=== PATIENT | female | born 1935 | race Caucasian/White ===

== ENCOUNTER → 2016-11-17 | Outpatient (CLI) | payer MEDICARE, BC ==
[~2016-11-17] MED LIST: CARTIA XT120 MG PO; CLARITIN10 MG PO; CRESTOR10 MG PO; DONEPEZIL HCL10 MG PO; ELIQUIS5 MG PO; IMODIUM2 MG PO; LANOXIN (DIGI125 MCG PO; LEVOTHROID (SY50 MCG PO; LOPRESSOR50 MG PO; MAALOX LIQ UNIT30 ML PO; MILK OF MA400 MG/5 M PO; NORVASC2.5 MG PO; PEPCID20 MG PO; ROBITUSSIN DM120 ML PO; TYLENOL325 MG PO; XALATAN2.5 ML OPHTH; XANAX0.25 MG PO
--- NOTE | ~2016-11-17 | ESTC ---
Cardiac Perfusion Imaging Demographics Patient Name ABRAHAM Rogers Gender Female Patient Number [id number] Race Visit Number [id number] Ethnicity Corporate ID Room Number Accession Number [id number] Height Date of 1935 Weight Age 81 year(s) BSA Referring Physician Lissett Mclean BMI A Interpreting Adam Hernandez Date of study 11/17/2016 Physician Supervising MD/MLP Magi JANSEN Technologist Sarai Gamez Ordering Physician Lissett Jiménez MD manufacturing test technician Stress ECG Reading Magi Corbett APRN Nurse Kailyn Crawley Physician aerial photogrammetrist Procedure Type: Nuclear Stress Test:Pharmacological, Lexiscan, Cardiolite Stress Test Procedure Start time: 11/17/2016 08:08 Indications: Pulmonary Hypertension: Moderate and Atrial fibrillation. Risk Factors The patient risk factors include:cerebrovascular disease. Conclusions Summary 1. Perfusion Images: The overall quality of the study is fair, due to gastrointestinal tracer uptake. Left ventricular cavity size is small on stress and rest images. There is no evidence of abnormal lung activity. The right ventricle is not visualized well and cannot be assessed. Stress imaging reveals a small sized area of mild decreased isotope uptake in the basal inferoseptal wall of the left ventricle. Rest imaging reveals a medium sized area of moderate decreased isotope uptake in the inferoseptal wall and inferior wall of the left ventricle. Calculated TID ratio is 1.27. Gated imaging reveals hyperdynamic left ventricle with calculated LV ejection fraction of 73%. Impression ECG portion of stress test is clinically nondiagnostic for ischemia by diagnostic criteria due to baseline abnormalities. Myocardial perfusion imaging is mildly abnormal The basal inferoseptal wall defect and inferior wall defects worse on rest images with preserved wall motion is consistent with artifact. Calculated TID ratio is 1.27. Gated imaging reveals hyperdynamic left ventricle with calculated LV ejection fraction of 73%. Stress Protocols Resting ECG Afib with Twave inversion in II, III, aVF, V5, V6. Pre-stress physical exam: Patient assessed by Carly LION prior to testing. Chest - CTA Cardio - IRR, S1, S2. Peak HR:88 bpm HR response: Appropriate Peak BP:154/67 mmHg BP response: Appropriate Predicted HR: 141 bpm HR/BP product:07825 % of predicted HR: 62 Reason for termination:Infusion complete ECG Findings Arrhythmias Occasional PVC's with lexiscan infusion. Symptoms No symptoms with Lexiscan infusion. Complications Procedure complication: None. Stress Interpretation Appropriate hemodynamic response to Lexiscan. Significant ST-T wave changes with Lexiscan. ECG portion is Positive for ischemia by diagnostic criteria. Will correlate with nuclear images. Imaging Results Summed scores - Summed stress score: 9 - Summed rest score: 14 - Summed difference score: -5 Stress ejection Ejection fraction:73 % EDV :62 ml ESV :17 ml Stroke volume :45 ml LV mass :92 gr Imaging Protocols Rest Stress Isotope:Tc99m Sestamibi IV Isotope: Tc99m Sestamibi IV Isotope dose:10 mCi Isotope dose:30.7 mCi Date:11/17/2016 07:26 Date:11/17/2016 09:00 Technique: SPECT Technique: Gated Supine SPECT Supine Scan Time:45-60 minutes post Scan Time:45-60 minutes post injection injection Procedure Medications - Regadenoson (Lexiscan) 0.4 mg IV over 10-15 sec. I.V. 0.4 mg. Medical History Admission Data Admission date: 11/17/2016 Admission Time: 07:05 Hospital Status: Outpatient. Signatures dtt: dtshilo: 11/17/16 0808 Physician Self Edit
== END | disposition disaster alternative care site (69) ==
LOC: GRAD 07:00
DX: I48.91 Unspecified atrial fibrillation (principal); I27.2 Other secondary pulmonary hypertension; I67.9 Cerebrovascular disease, unspecified; R94.39 Abnormal result of other cardiovascular function study
CPT/HCPCS: A9500; J2785

== ENCOUNTER → 2017-01-03 | Outpatient (CLI) | payer MEDICARE, BC ==
[2017-01-03 15:58] LABS: HEMOGLOBIN 11.5 g/dL (10.0-15.0); MCH 27.9 pg (27.0-34.0); MCHC 30.3 gm/dL (32.0-36.5); MCV 92.2 fl (83.0-98.0); MPV 10.3 fl (9.4-12.4); RBC 4.12 M/uL (3.50-5.50); RDW-CV 14.8 % (11.9-14.6); WBC 3.7 K/uL (4.0-11.0)
== END ==
LOC: LGSMG 15:51
PROVIDERS: Internal Medicine
DX: I48.91 Unspecified atrial fibrillation (principal)

== ENCOUNTER 2017-03-28 17:55 | Inpatient (IN) | payer MEDICARE, BC, MEDICAID ==
[~2017-03-28] VITALS: Ht 171.4 cm; Wt 60.6 kg
--- NOTE | ~2017-03-28 | OR ---
PATIENT'S NAME: RIGOBERTO ROSARIO [facility] AGE: 81 Y [address] ROOM: [address] [address] [facility] ADMIT DATE: 03/28/2017 OR/Procedure Report DISCHARGE DATE: FAMILY PHYSICIAN: PHYSICIAN, UNKNOWN ATTENDING PHYSICIAN: ELVIN ALMANZA SURGEON: Daniel De Leon MD SPIN INSTRUCTOR: Quique Delgado PA-C. DATE OF PROCEDURE: 03/31/2017 PREOPERATIVE DIAGNOSES: 1. Gallstone pancreatitis. 2. Chronic cholecystitis/cholelithiasis. POSTOPERATIVE DIAGNOSES: 1. Gallstone pancreatitis. 2. Chronic cholecystitis/cholelithiasis. 3. Normal common bile duct on cholangiogram with no residual filling defects. PROCEDURE: Laparoscopic cholecystectomy with intraoperative cholangiogram. SURGEON: Daniel De Leon MD. ANESTHESIA: General with 30 mL of 0.5% Marcaine local. SPECIMEN: Gallbladder with multiple 1 cm stones. INDICATION: The patient is a pleasant 81-year-old young lady, admitted on 03/28/2017 with gallstone pancreatitis pretty severe with a lot of peripancreatic and gallbladder edema. She had large stones. Her liver function tests remained normal. Her common bile duct was 5 mm and her liver function tests and her amylase and lipase trended toward normal. Today, we elected to perform gallbladder removal and assessment of the common bile duct. DESCRIPTION OF PROCEDURE: After informed consent, the patient was taken to the operating room and after general endotracheal anesthesia, the patient's abdomen was prepped and draped into a sterile field. Local anesthetic infiltrated prior to each incision. The first one made below the umbilicus and carried down to identify the anterior fascia, through which a Veress needle was inserted and pneumoperitoneum created. Trocar and laparoscope were inserted under direct vision. The remaining trocars were placed. The gallbladder was edematous, was pale, was retracted cephalad and laterally. We stripped down the adhesions of the hepatoduodenal ligament and isolated a slightly dilated cystic duct. We placed a clip on the gallbladder side. Did a cystotomy, opened it up. We had to milk out some stone debris and then we [facility] AGE: 81 Y [address] ROOM: [address] [address] [facility] ADMIT DATE: 03/28/2017 OR/Procedure Report DISCHARGE DATE: FAMILY PHYSICIAN: PHYSICIAN, UNKNOWN ATTENDING PHYSICIAN: ELVIN ALMANZA got free flow of bile out of the cystic duct. We placed our cholangiogram catheter used Isovue 30 contrast and obtained a cholangiogram with the above- mentioned normal results. We removed the cholangiogram catheter, clipped the cystic duct times 3 distally and divided. The cystic artery was clipped and divided. The gallbladder was removed from the liver bed with electrocautery. The gallbladder put into an EndoCatch bag and brought out through the subxiphoid and the umbilical incision. We irrigated the right upper quadrant. It was found to be hemostatic. No evidence of bile leak and the clips were in place. The trocars were removed and pneumoperitoneum released. Midline fascia defects were closed with 0 Vicryl. Skin closed with subcuticular 4-0 Vicryl. Steri-Strips and sterile dressings applied. The patient tolerated the procedure well, transferred to recovery in stable condition. DANIEL DE LEON MD WTAma/modl /[id number] d: 04/01/17 0018 t: 04/12/17 0950, OPERATIVE SUMMARY
--- NOTE | ~2017-03-28 | CON ---
PATIENT'S NAME: RIGOBERTO ROSARIO [facility] AGE: 81 Y [address] ROOM: [address] [place], [place] [address] LOCATION: [facility] ADMIT DATE: 03/28/2017 Consultation DISCHARGE DATE: FAMILY PHYSICIAN: PHYSICIAN, UNKNOWN ATTENDING PHYSICIAN: ELVIN ALMANZA DATE OF CONSULTATION: 03/29/2017 REFERRING PHYSICIAN: HANNAH JAIME MD CONSULTATION NOTE REASON FOR CONSULTATION: Gallstone pancreatitis. HISTORY OF PRESENT ILLNESS: Rigoberto Rosario is a 81-year-old female, who resides at [facility] in [place]. She states that for years she has known that she had a large gallstone. She would have symptoms off and on. She saw a surgeon in the past in [place] who discussed pros and cons of a cholecystectomy. The patient opted not to have an operation at that time. She states that she had been getting along very well and felt good yesterday, when she went to lunch at [facility]. Shortly after eating, she did not feel good and within an hour, she was clearly worse with increased abdominal pain. She states that the worst pain was actually located in the right lower quadrant. She did have nausea. Eventually, she called the nurse who then called the ambulance to take her to the emergency room. Today, she states that she is feeling better after receiving some Dilaudid last night. The patient's initial evaluation showed a white blood cell count of 7.9. CMP showed a total bilirubin of 0.9, alkaline phosphatase 91, AST 257, ALT 145, amylase 1911, and lipase greater than 30,000. A CT scan of the abdomen and pelvis was done, that showed a single 12 mm rim calcified stone in the gallbladder. The gallbladder wall was edematous. There was small perihepatic fluid. The bile ducts were dilated with common bile duct measuring 8 mm and a subtle 5-mm density in the lower duct adjacent to the ampulla that was suspicious for choledocholithiasis. There was moderate peripancreatic inflammatory changes with edema, but no loculated fluid collections. The patient was admitted under the care of the hospitalist, and Dr. Butt consulted Surgery today for evaluation. Gastroenterology has also been consulted. PAST MEDICAL HISTORY: ALLERGIES: GLUTEN, ASPIRIN. ADVERSE REACTION TO COUMADIN. PATIENT'S NAME: ABRAHAM, RIGOBERTO L [facility] AGE: 81 Y [address] ROOM: [place] [address] LOCATION: [facility] ADMIT DATE: 03/28/2017 Consultation DISCHARGE DATE: FAMILY PHYSICIAN: PHYSICIAN, UNKNOWN ATTENDING PHYSICIAN: ELVIN ALMANZA HOME MEDICATIONS: Include: 1. Tylenol 325 mg p.o. q.4 hours. 2. Diltiazem HCl 120 mg p.o. at bedtime. 3. Claritin 10 mg p.o. q. day p.r.n. allergies. 4. Lanoxin 125 mcg p.o. q. day. 5. Donepezil 10 mg p.o. at bedtime. 6. Eliquis 5 mg p.o. b.i.d. 7. Imodium 2 mg p.o. q.4 hours p.r.n. diarrhea. 8. Xalatan 1 drop ophthalmic at bedtime. 9. Maalox 15 mL p.o. q.4 hours p.r.n. indigestion. 10. Milk of magnesia 10 mL p.o. q. day p.r.n. constipation. 11. Robitussin 10 mL p.o. q.4 hours p.r.n. cough. 12. Levothroid 50 mcg p.o. q. day. 13. Xanax 0.25 mg p.o. b.i.d. p.r.n. anxiety. MEDICAL PROBLEMS: Illnesses include: 1. Atrial fibrillation, on Eliquis. 2. Recent CVA while off blood thinners. 3. Systemic lupus erythematosus. 4. Hypothyroidism. 5. Glaucoma. 6. Dementia. 7. Mild congestive heart failure. 8. History of left breast cancer that did not require chemotherapy or radiation. 9. Chronic hematuria with cause unknown. PAST SURGICAL HISTORY: Operations: 1. Left mastectomy. 2. Colonoscopy. SOCIAL HISTORY: The patient lives in [facility] since having her stroke. 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 Her was a pie filler. They moved throughout the country due to his job. She has three children. She has never smoked. She does not consume alcohol. FAMILY HISTORY: A sister had multiple myeloma, and brother had metastatic colon cancer. REVIEW OF SYSTEMS: PATIENT'S NAME: RIGOBERTO ROSARIO [facility] AGE: 81 Y [address] ROOM: [address] [place], [place] [address] LOCATION: [facility] ADMIT DATE: 03/28/2017 Consultation DISCHARGE DATE: FAMILY PHYSICIAN: PHYSICIAN, UNKNOWN ATTENDING PHYSICIAN: ELVIN ALMANZA See HPI. PHYSICAL EXAMINATION: VITAL SIGNS: Temperature is 98.0, blood pressure 169/76, pulse 77, and respirations 20. GENERAL: A 81-year-old female, who is alert, oriented, pleasant and cooperative, in no acute distress. Very talkative. A good historian. LUNGS: Clear. HEART: Regular. ABDOMEN: Positive bowel sounds. Abdomen is soft with diffuse tenderness. She was tender in the right lower quadrant, but then also tender in the right upper and epigastric region. No peritoneal signs. LABORATORY DATA AND IMAGING STUDIES: Laboratory work today; white blood cell count 6.8, hemoglobin 13.7, hematocrit 43.4, and platelets 243,000. Sodium 139, potassium 3.6, chloride 104, CO2 of 28, BUN 12, creatinine 0.6, glucose 99, total bilirubin 0.8, alkaline phosphatase 87, AST 179, and ALT 158. CT per HPI. Ultrasound is being performed at this time. ASSESSMENT: 1. A 81-year-old female with gallstone pancreatitis with dilated ducts and possible choledocholithiasis. 2. Atrial fibrillation, on Eliquis with the last dose being yesterday morning. 3. History of left breast cancer. 4. Systemic lupus erythematosus. PLAN: I discussed the findings on CT scan with the patient. I discussed that Gastroenterology will need to evaluate for possible ERCP. Once the decision is made in regard to the ERCP, then we will decide on the timing of the gallbladder removal. Regardless, we want the pancreatitis to resolve prior to proceeding. Also we need to wait for the Eliquis to get out of her system. We will await Gastroenterology's decision and then make plans from there. I briefly discussed what the operation would entail along with postoperative plans. Dr. De Leon will be seeing the patient momentarily. We will review over indications along with risks, benefits, and alternatives. Dr. De Leon is available for supervision. MYLENE FANG PA-C FOR RUTH DE LEON MD PATIENT'S NAME: RIGOBERTO ROSARIO [facility] AGE: 81 Y [address] ROOM: [place] [address] [facility]: 03/28/2017 Consultation DISCHARGE DATE: FAMILY PHYSICIAN: PHYSICIAN, UNKNOWN ATTENDING PHYSICIAN: ELVIN ALMANZA/donald /[id number] d: 03/29/17 1436 t: 04/12/17 0953, CONSULTATION REPORT
--- NOTE | ~2017-03-28 | DS ---
PATIENT'S NAME: RIGOBERTO ROSARIO [facility] AGE: 81 Y [address] ROOM: [address] [place] [address] LOCATION: [facility]U ADMIT DATE: 03/28/2017 Discharge Summary DISCHARGE DATE: 04/07/2017 FAMILY PHYSICIAN: Physician, Unknown ATTENDING PHYSICIAN: Jameson Braga PRINCIPAL DISCHARGE DIAGNOSIS: Gallstone pancreatitis. SECONDARY DIAGNOSES: 1. Chronic cholecystitis with cholelithiasis. 2. Chronic atrial fibrillation on anticoagulation therapy with Eliquis. 3. Atrial fibrillation with rapid ventricular response. 4. Ventricular tachycardia. 5. Hypokalemia. 6. Hypophosphatemia, 1.6 on 04/03/2017. 7. Leukopenia, likely related to diagnosis of systemic lupus erythematosus. 8. Coronary artery disease, nonobstructive. 9. [place] Heart Association class III heart failure, diastolic. 10. Choledocholithiasis. 11. Moderate protein-calorie malnutrition. CONSULTATIONS: 1. General Surgery, Dr. Irving. 2. Cardiology, Dr. Galeana. PROCEDURES: Laparoscopic cholecystectomy with IOC, intraoperative cholangiogram, 03/31/2017. CONSULTATION: GI, Dr. Isa Benavides, on 03/29/2017. Dr. Galeana was consulted on 04/04/2017. The cardiac cath was on 04/05/2017. BRIEF SUMMARY: Ms Rigoberto Rosario is a beti 81-year-old, female who presented to the hospital on the 03/28/2017 with acute abdominal pain after eating lunch at [facility] where she is a resident. She had had a normal bowel movement prior to having lunch and had not had any recent fevers, chills, nausea, vomiting, chest pain, or shortness of breath, and she had a known history of gallstones by way of ultrasound done about 6 years prior to admission. She was admitted and found to have gallstone pancreatitis and is being treated with IV fluids, narcotics, and antiemetics. Her Eliquis was held for possible ERCP. She tolerated the surgery well, but then she developed some V-tach episode on April 01, was self-limited about 21 seconds long and thereafter was in AFib with RVR. She was treated with Cardizem IV and then oral Cardizem, but her PATIENT'S NAME: RIGOBERTO ROSARIO [facility] AGE: 81 Y [address] ROOM: [id number] [place], [place] [address] LOCATION: [facility]PCU ADMIT DATE: 03/28/2017 Discharge Summary DISCHARGE DATE: 04/07/2017 FAMILY PHYSICIAN: Physician, Unknown ATTENDING PHYSICIAN: Jameson Braga rates continued to be in the low 100s. At that time, Dr. Galeana was consulted. As Dr. Galeana knew her from outside and previous, stress test had been equivocal, but she had deferred cardiac cath at that time and while he was evaluating her and deciding on treatment including increasing her beta- blockers, she had another episode of V-tach on April 05. It was decided at that time, she should have a cardiac catheterization to look for ischemic causes. The cardiac cath showed nonocclusive coronary artery disease with a normal EF. It was decided she needed a LifeVest. Because of the V-tach, LifeVest arrived and has been placed on the patient. She is now ready for discharge. The patient takes a vegetarian diet and had a low phosphorus, this was repleted IV and p.o. She was encouraged to increase her protein in her diet. Her pre-albumin is 12.5. She is also noted to be leukopenic, very mildly anemic. The leukopenia is likely related to history of lupus, which she has been off prednisone for many years and is stable over the last couple of years. INSTRUCTIONS AT DISCHARGE: 1. Diet: High protein. 2. Activity: As tolerated. 3. Followup: Dr. Galeana in [address] Irving, surgeon, as needed. 5. She should see her PCP in 1 week. MEDICATIONS AT DISCHARGE: 1. Amlodipine 2.5 mg p.o. daily for hypertension, hold if systolic blood pressure is less than 110. 2. She is to stop digoxin, Diltiazem, and she should also stop donepezil. This is contraindicated because of her risk of arrhythmia. 3. She is to continue Eliquis 5 mg p.o. b.i.d., famotidine 20 mg p.o. b.i.d., Xalatan drops at h.s. to both eyes. 4. Levothyroxine 50 mcg p.o. daily on an empty stomach. 5. Metoprolol tartrate 100 mg p.o. b.i.d. 6. Crestor 10 mg p.o. daily. 7. Tylenol p.r.n. 8. Xanax p.r.n. 9. Imodium p.r.n. 10. Loratadine 10 daily. 11. Maalox p.r.n. 12. Robitussin p.r.n. PATIENT'S NAME: RIGOBERTO ROSARIO [facility] AGE: 81 Y [address] ROOM: [place] [address] [facility]: 03/28/2017 Discharge Summary DISCHARGE DATE: 04/07/2017 FAMILY PHYSICIAN: Physician, Unknown ATTENDING PHYSICIAN: Jameson Braga CONDITION AT DISCHARGE: Good. Greater than 30 minutes were spent in the discharge process. RICHIE MUNOZ MD LM/donald /[id number] d: 04/08/17704 t: 04/10/17 1830, DISCHARGE SUMMARY
--- NOTE | ~2017-03-28 | ER ---
[facility] 81 Y [address] ROOM: [place] [address] LOCATION: [facility]U ADMIT DATE: 03/28/2017 ER/Outpatient Report DISCHARGE DATE: FAMILY PHYSICIAN: PHYSICIAN, UNKNOWN ATTENDING PHYSICIAN: ELVIN ALMANZA Time of Arrival: 1755 hours. Time of Evaluation: 1755 hours. CHIEF COMPLAINT: Right-sided abdominal pain. HISTORY OF PRESENT ILLNESS: This is a 81-year-old female, who presents to the ER via [facility], who states she has been having some right-sided abdominal pain. This started after lunch today. She states that it has been a kind of in the midportion the right side of her abdomen, and she describes it as "pain." She states she does not believe she has been running any fevers. She has had no troubles with urination. Her last bowel movement was today and was normal. She states she has had no troubles with constipation, and she has never had pain like this before. She states that she has felt like she was going to vomit today but has not. ALLERGIES: GLUTEN AND ASPIRIN; ASPIRIN MAKES HER EARS RING. MEDICATIONS: Please see medication list in nurse's notes. PAST MEDICAL HISTORY: 1. Atrial fibrillation. 2. Systemic erythematosus lupus. 3. Hypothyroidism. 4. Breast cancer. 5. History of ischemic stroke. PAST SURGICAL HISTORY: Mastectomy. SOCIAL HISTORY: Denies smoking, drug, or alcohol use. REVIEW OF SYSTEMS: All systems were reviewed and negative with the exception of those discussed in the HPI. [facility] AGE: 81 Y [address] ROOM: [address] [address] LOCATION: [facility]PCU ADMIT DATE: 03/28/2017 ER/Outpatient Report DISCHARGE DATE: FAMILY PHYSICIAN: PHYSICIAN, UNKNOWN ATTENDING PHYSICIAN: ELVIN ALMANZA PHYSICAL EXAMINATION: VITAL SIGNS: Height 5 feet 7-1/2 inches stated, weight 59 kilos taken, blood pressure is 192/86, pulse 68, respirations 20, temperature 98 degrees tympanically, and saturations 97% on room air. Irvona Coma Score is 15. GENERAL: An alert, calm, well-developed female, in mild to moderate distress. HEENT: Head: Normocephalic, does display moist mucous membranes. Eyes: Pupils are equal and reactive to light. NECK: Supple. No lymphadenopathy. LUNGS: Clear to auscultation bilaterally. HEART: Irregular rate and rhythm. ABDOMEN: Soft. She has a significant amount of tenderness in the right side of her abdomen. She does have guarding with this. She has good bowel sounds throughout. No masses are palpated. EXTREMITIES: No clubbing or cyanosis. She has full range of motion of all limbs. SKIN: Warm, dry, and intact. NEURO: Cranial nerves 2 through 12 grossly intact. Gait, able to ambulate with one person assistance. LABORATORY DATA AND X-RAYS: CBC: White count is 7.9, hemoglobin is 13.4, platelets 269, ANC is 6.8. CMS: Glucose is 152, AST 257, ALT 145, and GFR 71. Total bilirubin is 0.9. Amylase is 1911, lipase is greater than 30,000. Urinalysis: Leukocytes 25, nitrites negative. UA micro: White blood cells 5-10, red blood cells negative, epithelial 2-5, bacteria many. We did send that off for culture. CT scan was done. It shows cholelithiasis with possible cholecystitis. She also has a dilated bile duct with a subtle 5 mm density in the lower duct. She has moderate pancreatitis. IMPRESSION: 1. Pancreatitis. 2. Acute versus chronic cholecystitis. ASSESSMENT AND PLAN: We did start an IV here in the emergency room and did give her fentanyl for pain, Zofran for nausea, and some IV fluids. The patient did rest comfortably her entire stay. The patient states her primary care physician is Dr. Vieyra. Therefore, I called the Hospitalist Service. I also spoke with Dr. Benavidse, GI specialist as well. The hospitalist service will be admitting her at this time. The patient and the patient's son understand and agree with care. PATIENT'S NAME: RIGOBERTO ROSARIO [facility] AGE: 81 Y [address] ROOM: [id number] [place], [place] [address] LOCATION: GPCU ADMIT DATE: 03/28/2017 ER/Outpatient Report DISCHARGE DATE: FAMILY PHYSICIAN: PHYSICIAN, UNKNOWN ATTENDING PHYSICIAN: ELVIN ALMANZA BETO BLAKELY PA-C FOR MD MICHAEL GARCIA/donald /[id number] d: 03/29/17 0144 t: 04/11/17 0650, OUTPATIENT REPORT
--- NOTE | ~2017-03-28 | CON ---
PATIENT'S NAME: RIGOBERTO ROSARIO [facility] AGE: 81 Y [address] ROOM: [address] [place], [place] [address] LOCATION: GPCU ADMIT DATE: 03/28/2017 Consultation DISCHARGE DATE: FAMILY PHYSICIAN: PHYSICIAN, UNKNOWN ATTENDING PHYSICIAN: ELVIN ALMANZA DATE OF CONSULTATION: 03/29/2017 REFERRING PHYSICIAN: HANNAH JAIME MD REFERRING PROVIDER: Dr. Cassandra Butt. REASON FOR CONSULTATION: Choledocholithiasis. HISTORY OF PRESENT ILLNESS: This is a very pleasant 81-year-old female who resides at [facility] in [place]. The patient states that for a number of years, she has been known to have a large gallstone, though previously saw a surgeon and refused for cholecystectomy as she was having "no problems." The patient was at [facility] the day prior to admission eating lunch. She stated as she was returning back to her room, she began having increasing abdominal pain. She states that the pain was located in her right lower quadrant that progressively worsened. She also had accompanied nausea with this, though denies any vomiting. She was then taken to the emergency room for evaluation. Initial evaluation did show white blood cell count of 7.9, alkaline phosphatase of 91, AST elevated at 257, ALT of 145, amylase was 1911, and lipase was greater than 30,000. CT was also completed, showed a single 12 mm rim calcified stone in the gallbladder as well as the gallbladder wall was edematous. Small perihepatic fluid was seen the bile ducts were dilated with common bile duct measuring 8 mm with septal 5 mm density in the lower duct adjacent to the ampulla suspicious for choledocholithiasis. There was moderate peripancreatic inflammatory changes with edema but no loculated fluid collections at that time. The patient was admitted for complete evaluation. The patient was seen and examined. She states that she is significantly better today regarding her abdominal pain. She does state that through the night, she had severe pain, now received Dilaudid and feels much better. She does have flatus. Last bowel movement was the day prior to admission. She denies any acute chest pain, chest pressure, shortness of breath, fever, shaking chills, nausea, vomiting, or radhika abdominal pain at this time. She does state that her abdomen is still "sore." PAST MEDICAL HISTORY: Atrial fibrillation, on Eliquis with the last dose being 03/28/2017 morning, PATIENT'S NAME: RIGOBERTO ROSARIO [facility] AGE: 81 Y [address] ROOM: [address] [place], [place] [address] [facility] ADMIT DATE: 03/28/2017 Consultation DISCHARGE DATE: FAMILY PHYSICIAN: PHYSICIAN, UNKNOWN ATTENDING PHYSICIAN: ELVIN ALMANZA recent CVA while off blood thinners, systemic lupus erythematous, hypothyroidism, glaucoma, dementia, "mild congestive heart failure", history of left breast cancer, chronic hematuria with unknown cause. PAST SURGICAL HISTORY: Left mastectomy, previous colonoscopy that she reports was "normal." She denies any upper endoscopy. SOCIAL HISTORY: The patient lives at [facility] after her stroke. She previously was a teacher. Her was a security software engineer. She has three children. Denies any tobacco or alcohol use. FAMILY HISTORY: The patient's sister had multiple myeloma. The patient's brother had metastatic colon cancer. ALLERGIES: ASPIRIN, COUMADIN, GLUTEN PRODUCTS. CURRENT MEDICATIONS: Please refer to the medication administration record. REVIEW OF SYSTEMS: All point review of systems was completed. All were negative except for those identified in the history of present illness. PHYSICAL EXAMINATION: GENERAL: A pleasant 81-year-old female, lying in bed, who appears to be in no acute distress. VITAL SIGNS: Temperature 98.0, pulse of 77, respirations of 20, blood pressure 169/76. SKIN: [place], warm, and dry. No jaundice. HEENT: Head is normocephalic and atraumatic. Pupils are equal, round, and reactive to light. Sclerae are clear. Nonicteric. Oral mucosa is pink and moist. NECK: Soft and supple. CARDIOVASCULAR: Regular. Normal S1, S2. RESPIRATORY: Respirations even and unlabored. LUNGS: Clear to auscultation. ABDOMEN: Soft with diffuse tenderness located specifically in the right lower quadrant. No peritoneal signs are seen, positive bowel sounds. She also is quite tender in the right upper quadrant as well as the midepigastric area. MUSCULOSKELETAL: No muscle weakness or atrophy. EXTREMITIES: No edema. PATIENT'S NAME: RIGOBERTO ROSARIO [facility] AGE: 81 Y [address] ROOM: [address] [place], [place] [address] LOCATION: GPCU ADMIT DATE: 03/28/2017 Consultation DISCHARGE DATE: FAMILY PHYSICIAN: PHYSICIAN, UNKNOWN ATTENDING PHYSICIAN: ELVIN ALMANZA NEUROLOGIC: Grossly nonfocal. LABS AND DIAGNOSTICS: White blood cell count of 6.8, hemoglobin of 13.7, hematocrit of 43.4, and platelets of 243. Chemistry panel includes a glucose of 99, BUN of 12, creatinine 0.6, sodium 139, potassium 3.6, chloride 104, CO2 of 28, albumin of 3.5. AST on admission was 257, now down to 179; ALT was 145, up to 158. Alkaline phosphatase of 87, total bilirubin is 0.8. Amylase on admission was 1911, lipase was greater than 30,000. CT abdomen and pelvis completed on admission shows cholelithiasis, acute versus chronic, dilated bile ducts measuring at 8 mm with septal 5 mm density in the lower duct adjacent to the ampulla suspicious for choledocholithiasis. Moderate pancreatitis also seen with no loculated fluid collection. An abdominal ultrasound is currently pending at this time. ASSESSMENT AND PLAN: This is a very pleasant 81-year-old female who was admitted with acute abdominal pain and elevated liver function tests. After CT abdomen and pelvis was completed, the patient was found to have choledocholithiasis as well as cholelithiasis with acute versus chronic cholecystitis at this time. The patient recently had Eliquis with the last known dose being 03/28/2017. Pending this, we will hold off on further intervention for the ERCP until it is safe to proceed. We will continue to trend liver function tests. The patient has been placed on Unasyn for antibiotic coverage. Further recommendations to be given over the course of the patient's hospitalization. We will also wait for the abdominal ultrasound to be returned as Surgery is also on board for possible laparoscopic cholecystectomy as well. RETA WALLIS, CAP PARTS CUTTER FOR MD ANNEMARIE MORGAN/modl /[id number] d: 03/29/17 2152 t: 04/17/17 1205, CONSULTATION REPORT
--- NOTE | ~2017-03-28 | CATH ---
Cardiac Diagnostic Report Demographics Patient Name ABRAHAM Rogers Gender Female Date of 1935 Age 81 year(s) Patient Number [id number] Date of Study 04/05/2017 Visit Number [id number] Room Number G[address] [place] [id number] Ht 171.45 cm Wt 63 kg Referring Efstrati[facility] Primary Physician Physician Vinay Barba CRNA Performing Efstratiou Secondary Physician Physician Vinay Jiménez MD Diagnostic Efstrati[facility] Assisting Physician Physician Vinay Jiménez MD Interventional Physician It Architect Physician Findings and Conclusions Diagnostic Findings and Conclusion Non critical CAD Mild pulmonary hypertension Diagnostic Recommendations Medical therapy, add Statin Procedure Description The patient was brought to the diagnostic cardiac catheterization-EP laboratory in the fasting, non-sedated state. Informed consent was obtained in the written and verbal form after the risks and benefits were explained. The patient had no further questions and agreed to proceed. The planned puncture-incision site(s) were shaved and prepped with ChloraPrep. After a three minute dry time the patient was draped in the usual sterile manner. Surface ECG rhythm, blood pressure measurement, supplemental oxygen, and pulse oximetry were monitored throughout the procedure. Arterial access. The access site was infiltrated with lidocaine. The vessel was entered with the Seldinger technique. A sheath was advanced into the vessel and used for catheter placement. Venous access. The access site was infiltrated with lidocaine. The vessel was entered with the Seldinger technique. A sheath was advanced into the vessel and used for catheter placement. Right heart catheterization. A [place] catheter was successfully advanced to the right atrium, right ventricle, pulmonary artery, and pulmonary artery wedge position under fluoroscopic guidance. Resting hemodynamics were obtained. Measurements included pressures, arterial and venous oxygen saturations and calculating cardiac output. Selective right coronary angiography. A catheter was advanced into the right coronary vessel ostium under fluoroscopic guidance. Contrast was injected by hand. Images were obtained in multiple projections. Selective left coronary angiography. A catheter was advanced into the left coronary vessel ostium under Fluoroscopic guidance. Contrast was injected by hand. Images were obtained in multiple projections. Left heart catheterization with ventriculography. A catheter was advanced across the aortic valve to the left ventricle under fluoroscopic guidance. Resting hemodynamics were obtained. With the catheter at the left ventricular apex, contrast was injected. Images were obtained in [place] projection. Post-ventriculography LV pressure was obtained. The catheter was gradually withdrawn into the aorta with continuous pressure recording. Hemostasis: The sheath(s) was removed and manual compression was performed. Hemostasis was achieved. The patient was transferred to the nursing floor with continuous monitoring via cart accompanied by a nurse. The patient left the laboratory in stable condition. Diagnostic Cath Status: Urgent Procedure Procedure Type Diagnostic procedure:Angiography:, Right and Left Heart Cath, Coronary Angios Indications: Pulmonary hypertension and CHF. The procedure was explained in detail to the patient. Risks, complications and alternative treatments were reviewed. Written consent was obtained. Medications Reviewed with Patient prior to Procedure. Angiographic Findings Dominance: Right Cardiac Arteries and Lesion Findings LMCA: Normal (0% Stenosis). LAD: Abnormal.LAD ok Diag 60% Lesion on 1st Dia% stenosis . LCx: Abnormal.20% prox OM is ok Lesion on Prox CX: 20% stenosis . RCA: Abnormal.20% mid Lesion on Mid RCA: 20% stenosis . Coronary Tree Procedure Data Procedure Date Date: 04/05/2017Start: 11:11 AMEnd: 12:10 PM Entry Locations - Retrograde Percutaneous access was performed through the Right Radial artery (Primary location). A 6 Fr sheath was inserted. Hemostasis was successfully obtained using a TR band. Closure Comments: 13cc air by [place]ano Phelps - Antegrade Percutaneous access was performed through the Right Brachial vein. A 6 Fr sheath was inserted. Procedure Medications Order and Administration + + +-------+-------+ !Time !Medication !Dosage !Route ! + + +-------+-------+ !04/05/2017 !PAE Radial Cocktail: Heparin 5000 units, ! !I.A. ! !11:13 AM !Nitroglycerin 200mcg, Verapamil 3 mg ! ! ! ! !(ACC_3) ! ! ! + + +-------+-------+ Devices Used - A6 Fr. Balloon Wedge Catheterwas used for:Right heart cath. - A6 Fr. BS JR 4 Diag. Catheterwas used for:Right coronary angiography. - A6 Fr. BS JL 3.5 Diag. Catheterwas used for:Left coronary angiography. - A6 Fr. BS Angled Pigtail Diag. Catheterwas used for:LV Pressures. Contrast Material - Isovue 16842 ml Fluoroscopy Time: Diagnostic: 3:18 minutes. Total: 3:18 minutes. Fluoroscopy Dose: Diagnostic: 320 mGy. Total: 320 mGy. Estimated Blood Loss: 5 ml. Medical History Allergies - ASA. - Other:(coumadin). Risk Factors The patient risk factors include:cerebrovascular disease, chronic lung disease and prior heart failure . Admission Data Admission Date: 03/28/2017 Admission Time: 08:22 PM Insurance Payors: Medicare. Clinical Evaluation Leading to Procedure Diagnosed on 04/04/2017 05:00 PM. - Anti-anginal medications were prescribed during the past two weeks. The medications are: Beta Blockers and Ca channel Blockers. - The patient has been in a state of heart failure within the past two weeks. - The patient's heart failure status was assessed as NYHA Class III, with CHF symptoms of Congestion on CXR. Snapshots Hemodynamics Condition: Rest O2 Consumption: Estimated: 169.29Heart Rate: 89 bpm Oxygen Saturation +--------+-----+----+ +----+ + !Location!pCO2 !pO2 !% Saturation !Hgb !O2 Content ! +--------+-----+----+ +----+ + !RA ! ! !60 !11.5! ! +--------+-----+----+ +----+ + !PA ! ! !57.5 !11.5! ! +--------+-----+----+ +----+ + !FA ! ! !88.4 !11.5! ! +--------+-----+----+ +----+ + Pressures (mmHg) +-----+ + !Site !Pressure ! +-----+ + !RA !7/6 (4) ! +-----+ + !RV !36/-3 ,4 ! +-----+ + !PCW ! (15) ! +-----+ + !PA !37/2 (24) ! +-----+ + !AO !132/59 (95) ! +-----+ + !LV !119/3 ,12 ! +-----+ + !LV !131/3 ,13 ! +-----+ + !AO !138/65 (97) ! +-----+ + !LV !128/3 ,13 ! +-----+ + Cardiac Output +------+ + + + !Method!CO (l/min) !CI (l/min/m2) !SV (ml) ! +------+ + + + !David !3.5 !2 !39.32 ! +------+ + + + Valve Gradients and Areas + +--------+--------+--------+---------+ + + !Valve !Peak !Mean !Area !Index !Flow !Source ! + +--------+--------+--------+---------+ + + !Aortic !0 !0 ! ! !461.74 !David ! + +--------+--------+--------+---------+ + + !Aortic !0 !0 ! ! ! ! ! + +--------+--------+--------+---------+ + + Shunts Oxygen Values O2 Capacity 156.4 O2 Consumption 169.29 Flows (l/min) Qs 3.81 Vascular Resistance (dynes x sec x cm-5) + +-----+-----+----+----+---------+-------+ !CO method !TSVR !SVR !TPVR!PVR !TPVR/TSVR!PVR/SVR! + +-----+-----+----+----+---------+-------+ !David !27.68!26.44!6.86!2.62!0.25 !0.1 ! + +-----+-----+----+----+---------+-------+ !Qp or Qs !25.43!24.29! ! ! ! ! + +-----+-----+----+----+---------+-------+ Signatures dtt: Eden Galeana dtd: 04/05/17 1111 Physician Self Edit
--- NOTE | ~2017-03-28 | CON ---
PATIENT'S NAME: RIGOBERTO ROSARIO [facility] AGE: 81 Y [address] ROOM: [place] [address] [facility] ADMIT DATE: 03/28/2017 Consultation DISCHARGE DATE: FAMILY PHYSICIAN: PHYSICIAN, UNKNOWN ATTENDING PHYSICIAN: ELVIN ALMANZA REFERRING PHYSICIAN: HANNAH JAIME MD HISTORY OF PRESENT ILLNESS: This is a 81-year-old lady, whom I follow at my office for chronic atrial fibrillation, and she was admitted to the hospital on with gallstone pancreatitis and underwent laparoscopic cholecystectomy on by Dr. Irving, and she has been recovering. I was asked to see the patient because she had a rapid ventricular response of her atrial fibrillation while she was on her usual dose of long-acting diltiazem. Since then, Dr. Prabhakar, hospitalist, had to increase the oral dose and also for a few hours gave her intravenous diltiazem yesterday. PAST MEDICAL HISTORY: Diastolic heart failure and hypertension. She had stroke before she consented on being anticoagulated, thankfully without any significant residual; hypothyroid, and psoriasis. In terms of cardiac evaluation, her ejection fraction by echo in February 2016 was 60%. There was estimated severe pulmonary hypertension of 69 mmHg, and at that point the patient did not agree to have a cardiac catheterization. She had a nuclear perfusion scan in November 2016, and at that point, the ejection fraction was calculated 73%, and she had an inferolateral defect that was larger and at rest and was considered to be artifactual. PAST SURGICAL HISTORY: Left mastectomy in 1992, bilateral cataracts. FAMILY HISTORY: Father had Parkinson's and at 93. Her mother also had atrial fibrillation, chronic kidney disease, diabetes. Her mother also had heart problems, nonspecified. Her sister had multiple myeloma. One of her two sons has had mitral valve repair and atrial flutter ablation. SOCIAL HISTORY: The patient is , retired. Never smoked. Does not use any alcohol. REVIEW OF SYSTEMS: Positive for dyspnea on exertion, history of gastrointestinal bleed, anxiety, and some history of lupus. OUTPATIENT MEDICATIONS: PATIENT'S NAME: RIGOBERTO ROSARIO [facility] AGE: 81 Y [address] ROOM: [place] [address] [facility] ADMIT DATE: 03/28/2017 Consultation DISCHARGE DATE: FAMILY PHYSICIAN: PHYSICIAN, UNKNOWN ATTENDING PHYSICIAN: ELVIN ALMANZA 1. Acetaminophen. 2. Diltiazem long-acting 120 mg daily. 3. Loratadine 10 mg daily. 4. Digoxin 125 mcg daily. 5. Donepezil 10 mg daily. 6. Apixaban 5 mg twice a day and apparently 2 mg every 4 hours as needed. 7. Maalox as needed. 8. Robitussin PM as needed. 9. Levothyroxine 50 mcg daily. 10. Alprazolam 0.25 mg daily. PHYSICAL EXAMINATION: GENERAL: A pleasant elderly woman, alert and oriented, comfortable at rest. VITAL SIGNS: Height 5 feet 7-1/2 inches, weight 63 kg, blood pressure 140/63, pulse 105. HEENT: Head: Normocephalic and atraumatic. No xanthelasmas. No jaundice. NECK: Supple. Mild jugular venous distention. No carotid bruits. LUNGS: Few rales at the bases, otherwise clear. HEART: Irregular first and second heart sounds. A 1/6 apical systolic murmur. ABDOMEN: Distended, nontender. LOWER EXTREMITIES: No peripheral edema. DIAGNOSTIC STUDIES: Review of diagnostic studies, the patient had a telemetry print from March 22, and at that time, she had a very long episode of ventricular tachycardia. Her electrocardiogram today shows atrial fibrillation with rapid ventricular response, inverted T waves in the lateral leads, left ventricular hypertrophy. Her chest x-ray shows bilateral pleural effusions, larger on the left, which are new since her previous study. Cardiac enzymes today are not elevated. LABORATORY DATA: Her proBNP is 1858. Creatinine was 0.3, potassium 4.0. PLAN: We will add metoprolol to control her heart rate in addition to the diltiazem. Her digoxin level is not elevated, although we are gradually moving away from digitalis for atrial fibrillation as most studies show increased mortality with this agent. Given the fact that she has heart failure, slightly abnormal nuclear stress test and an episode of ventricular tachycardia, I will plan a right and left heart catheterization that will clarify if she has any significant coronary artery disease, also give us an estimate of her pulmonary artery pressure that was calculated to be elevated on her echocardiogram. Risks, benefits, and alternatives were discussed and seen her son, who is a PATIENT'S NAME: RIGOBERTO ROSARIO [facility] AGE: 81 Y [address] ROOM: [place] [address] LOCATION: [facility] ADMIT DATE: 03/28/2017 Consultation DISCHARGE DATE: FAMILY PHYSICIAN: PHYSICIAN, UNKNOWN ATTENDING PHYSICIAN: ELVIN ALMANZA pharmacist, agreed to proceed. Thank you for allowing me to participate in the care of this patient. PANAYBRITTNEY PERDOMO MD PE/donald /[id number] d: 04/05/17 0143 t: 04/06/17 1001, CONSULTATION REPORT
--- NOTE | ~2017-03-28 | HP ---
PATIENT'S NAME: RIGOBERTO ROSARIO [facility] AGE: 81 Y [address] ROOM: [address] [place], [place] [address] LOCATION: GPCU ADMIT DATE: 03/28/2017 History & Physical DISCHARGE DATE: FAMILY PHYSICIAN: PHYSICIAN, UNKNOWN ATTENDING PHYSICIAN: ELVIN ALMANZA DATE OF SERVICE: 03/28/2017 CHIEF COMPLAINT: Right-sided abdominal pain. PRIMARY CARE PHYSICIAN: Dr. Vieyra HISTORY OF PRESENT ILLNESS: This is a very pleasant 81-year-old female, who presented with acute onset abdominal pain after lunch today, without prior history of similar pain. The patient notes she was eating lunch at [facility] where she resides and had some barbecue chicken with subsequent intense onset of right-sided lower and upper quadrant abdominal pain. She attempted to work through this pain at the facility, but it persisted prompting presentation to the emergency department. She denies any recent fevers, chills, no associated nausea or vomiting, no chest pain or shortness of breath. She did have a normal bowel movement just prior to lunch today, which was without melena or hematochezia. She notes no other current associated symptoms. Upon arrival to the ER, she was treated with a single dose of fentanyl and reports her pain is markedly improved currently, though she is still quite uncomfortable upon ambulating as she had to use the restroom a bit ago. She does note being told by way of an ultrasound study 5 to 6 years ago that she had a large gallstone but has never had complications related to this. She is not a long-standing drinker. She notes no new recent additions to her medication list. Initial workup in the emergency department was notable for CT abdomen showing common bile duct stone with dilated CBD as well as acute cholecystitis, other labs notable for lipase greater than 30,000, white count normal at 7.9 as is creatinine at 0.8 and bilirubin is 0.9. The patient does have elevated LFTs with AST of 257 and ALT of 145. PAST MEDICAL HISTORY: 1. Atrial fibrillation, anticoagulated with Eliquis chronically. Recent CVA while off anticoagulation. 2. Lupus. 3. Hypothyroidism. 4. History of glaucoma. 5. Dementia. 6. Allergic rhinitis. [facility] 81 Y [address] ROOM: [place] [address] LOCATION: GPCU ADMIT DATE: 03/28/2017 History & Physical DISCHARGE DATE: FAMILY PHYSICIAN: PHYSICIAN, UNKNOWN ATTENDING PHYSICIAN: ELVIN ALMANZA 7. History of mild congestive heart failure, uncertain if systolic or diastolic. 8. History of breast cancer. 9. Chronic hematuria though the patient denies recurrent urinary tract infections or other diagnosis related to this. PAST SURGICAL HISTORY: Left mastectomy. FAMILY HISTORY: Fully reviewed and noncontributory to current presentation. SOCIAL HISTORY: The patient denies significant alcohol use, no tobacco use, lives in [facility] for the past 8 to 9 months since recent CVA. She is accompanied in the emergency department by her son, Baudilio. ALLERGIES: REPORTEDLY TO GLUTEN, ASPIRIN, AND XALATAN SOLUTION. MEDICATIONS: 1. Digoxin. 2. Synthroid. 3. Lasix 20 mg with potassium chloride. 4. Eliquis. 5. Diltiazem. 6. Donepezil. REVIEW OF SYSTEMS: Complete review of systems performed and negative except as otherwise noted above in the HPI. PHYSICAL EXAMINATION: VITAL SIGNS: Temperature 98 degrees, pulse 68, blood pressure 192/86, respirations 20, and saturating 97% on room air. GENERAL: Very pleasant and cognitively sharp elderly female, in moderate distress secondary to right-sided abdominal pain. HEENT: Head: Normocephalic and atraumatic. Eyes: No scleral icterus. Pupils equal, round, and reactive to light. Extraocular muscles intact. No conjunctival injection. CARDIOVASCULAR: Regular rate and rhythm by auscultation, no murmurs appreciated, 2+ pulses bilaterally in radial and dorsalis pedis. RESPIRATIONS: Clear to auscultation bilaterally. Normal respiratory effort, on room air and saturating well. ABDOMEN: Soft, exquisitely tender to palpation over right lower quadrant as PATIENT'S NAME: RIGOBERTO ROSARIO [facility] AGE: 81 Y [address] ROOM: [place] [address] LOCATION: GPCU ADMIT DATE: 03/28/2017 History & Physical DISCHARGE DATE: FAMILY PHYSICIAN: PHYSICIAN, UNKNOWN ATTENDING PHYSICIAN: ELVIN ALMANZA well as less so on the right upper quadrant, with minimal epigastric tenderness, interestingly. Bowel sounds are normoactive. EXTREMITIES: Without appreciable edema or other notable skin lesions. NEURO: The patient is alert and oriented x3. Cooperative and pleasant with exam. Moving all extremities voluntarily. LAB AND IMAGING: CBC notable for white count of 7.9, hemoglobin of 13.4, and platelets of 269. Sodium 138, potassium 3.8, chloride 104, bicarb 28, BUN 16, creatinine 0.8, glucose 152, and calcium 8.5. Total protein 7.8 and albumin 3.8. AST 257, ALT 145, alkaline phosphatase 91, and bilirubin 0.9. Lipase greater than 30,000. Urinalysis positive for bacteria and 5 to 10 white cells as well as red cells. CT showing findings noted above with CBD stone with dilation and acute cholecystitis is predominant finding. ASSESSMENT: 1. Acute gallstone pancreatitis. 2. History of atrial fibrillation, on anticoagulation. 3. Dementia. 4. Hypothyroidism. 5. Asymptomatic bacteriuria. 6. History of lupus. PLAN: The patient with evidence by CT scan and lipase elevation of acute gallstone pancreatitis. Though the pain is in atypical distribution, feel this most likely represents the aforementioned diagnosis. We will treat with IV fluids, pain and nausea control, n.p.o. status, and hold Eliquis tonight and in the morning with GI consult for possible ERCP. We will also order formal right upper quadrant ultrasound to further characterize cholecystitis and size of CBD dilation and gallstone. With regard to atrial fibrillation, CHADS-VASc score is approximately 6 indicative of 6% to 8% annual stroke risk. This was discussed with the patient especially in the setting of her recent CVA, but at this point, we will opt to hold Eliquis, continue digoxin and diltiazem, and monitor closely. We will continue home medications for hypothyroidism and dementia. For cholecystitis, the patient will likely warrant cholecystectomy this hospital stay, we will allow GI to evaluate first and likely pursue ERCP prior to surgical consultation. We will also hold off on antibiotics at this point as the patient is afebrile without other indications of infection. DISPOSITION: Likely 2 to 3 days, pending course as above. PATIENT'S NAME: RIGOBERTO ROSARIO [facility] AGE: 81 Y [address] ROOM: [address] [place] [address] LOCATION: GPCU ADMIT DATE: 03/28/2017 History & Physical DISCHARGE DATE: FAMILY PHYSICIAN: PHYSICIAN, UNKNOWN ATTENDING PHYSICIAN: ELVIN ALMANZA Full code. Time spent on date of admission including records review and direct the patient care is 35 minutes. MD JL EVERETT/donald /[id number] D: [id number] T: [id number] HISTORY & PHYSICAL
[2017-03-28 18:32] LABS: BASOPHIL % 0.1 %; HEMATOCRIT 41.7 % (33.0-46.0); HEMOGLOBIN 13.4 g/dL (10.0-15.0); IMMATURE GRANULOCYTE % 0.3 %; LYMPHOCYTE # 0.5 K/uL (0.8-4.0); LYMPHOCYTE % 6.4 %; MCH 29.5 pg (27.0-34.0); MCHC 32.1 gm/dL (32.0-36.5); MCV 91.6 fl (83.0-98.0); MONOCYTE # 0.6 K/uL (0.0-1.0); MONOCYTE % 7.3 %; MPV 10.3 fl (9.4-12.4); NEUTROPHIL # (ANC) 6.8 K/uL (1.8-7.8); NEUTROPHIL % 85.9 %; NRBC % 0 /100WBC (0-0.00); PLATELET COUNT 269 K/uL (150-450); RBC 4.55 M/uL (3.50-5.50); RDW-CV 14.6 % (11.9-14.6); WBC 7.9 K/uL (4.0-11.0)
[2017-03-28 18:49] LABS: ALBUMIN 3.8 gm/dL (3.5-5.0); ALK PHOS 91 IU/L (33-138); ALT 145 IU/L (12-78); ANION GAP 9.8 (10.0-19.0); AST 257 IU/L (10-40); BLOOD UREA NITROGEN 16 mg/dL (6-24); CALCIUM 8.5 mg/dL (8.5-10.5); CHLORIDE 104 mMol/L (96-110); CO2 28 mMol/L (22-32); CREATININE 0.8 mg/dL (0.5-1.1); POTASSIUM 3.8 mMol/L (3.7-5.1); SODIUM 138 mMol/L (135-145); TOTAL BILIRUBIN 0.9 mg/dL (0.0-1.5); TOTAL PROTEIN 7.8 g/dL (6.0-8.4)
[2017-03-28 19:16] LABS: BILIRUBIN URINE NEGATIVE (NEGATIVE); BLOOD URINE 50 /UL (NEGATIVE); COLOR URINE YELLOW (YELLOW); GLUCOSE URINE 50 mg/dL (NEGATIVE); KETONE URINE NEGATIVE (NEGATIVE); LEUKOCYTES URINE 25 /UL (NEGATIVE); NITRITE URINE NEGATIVE (NEGATIVE); PROTEIN URINE 15 mg/dL (NEGATIVE); TURBIDITY URINE 1+ (CLEAR); UROBILINOGEN URINE 1 mg/dL (NORMAL)
[2017-03-28 19:22] LABS: RBC URINE NEGATIVE #/HPF (NEGATIVE)
[2017-03-28 19:23] LABS: BACTERIA URINE MANY (NEGATIVE)
[2017-03-28] MEDS ORDERED: CARTIA XT120 MG PO (21:58)
[2017-03-28] MEDS ORDERED: TYLENOL325 MG PO (21:58)
[2017-03-28] MEDS ORDERED: CLARITIN10 MG PO (22:00)
[2017-03-28] MEDS ORDERED: LANOXIN (DIGI125 MCG PO (22:00)
[2017-03-28] MEDS ORDERED: DONEPEZIL HCL10 MG PO (22:01)
[2017-03-28] MEDS ORDERED: IMODIUM2 MG PO (22:02)
[2017-03-28] MEDS ORDERED: ELIQUIS5 MG PO (22:02)
[2017-03-28] MEDS ORDERED: XALATAN2.5 ML OPHTH (22:04)
[2017-03-28] MEDS ORDERED: MILK OF MA400 MG/5 M PO (22:04)
[2017-03-28] MEDS ORDERED: MAALOX LIQ UNIT30 ML PO (22:04)
[2017-03-28] MEDS ORDERED: ROBITUSSIN DM120 ML PO (22:06)
[2017-03-28] MEDS ORDERED: LEVOTHROID (SY50 MCG PO (22:07)
[2017-03-28] MEDS ORDERED: XANAX0.25 MG PO (22:07)
--- NOTE | 2017-03-29 01:52 | NUR ---
PATIENT FROM [facility] IN [place]. BROUGHT INTO ER PER SON. COMPLAINED OF NOT FEELING WELL AFTER EATING SUPPER TONIGHT. AFTER LYING DOWN, PATIENT BEGAN HAVING RIGHT SIDED ABDOMENAL PAIN WHICH WAS WORSE WITH PALPATION. RATED PAIN 10/10. NO VOMITING OR STOOLS. UPON ARRIVAL TO ER, BLOOD PRESSURE WAS 192/86. LIPASE GREATER THAN 30,000. INCREASED LIVER ENZYMES. CT OF ABDOMEN SHOWED COMMON BILE DUCT STONE AND CHOLECYSTITIS. PATIENT WAS ADMITTED TO PCU AND ARRIVED TO THE FLOOR AT 2135. VITALS WERE: HR 85. BP 182/81. RR 12. TEMP 98.1. O2 95% RA. COMPLAINS OF PRESSURE TO RIGHT LOWER ABDOMEN, BUT NO PAIN. HOSPITALIST ADMITTING. GI HAS BEEN CONSULTED.
[2017-03-29 03:45] LABS: BASOPHIL % 0.3 %; EOSINOPHIL % 0.3 %; HEMATOCRIT 43.4 % (33.0-46.0); HEMOGLOBIN 13.7 g/dL (10.0-15.0); IMMATURE GRANULOCYTE % 0.3 %; LYMPHOCYTE # 1.3 K/uL (0.8-4.0); LYMPHOCYTE % 19.2 %; MCH 29.1 pg (27.0-34.0); MCHC 31.6 gm/dL (32.0-36.5); MCV 92.3 fl (83.0-98.0); MONOCYTE # 0.8 K/uL (0.0-1.0); MONOCYTE % 11.1 %; MPV 10.6 fl (9.4-12.4); NEUTROPHIL # (ANC) 4.7 K/uL (1.8-7.8); NEUTROPHIL % 68.8 %; NRBC % 0 /100WBC (0-0.00); PLATELET COUNT 243 K/uL (150-450); RDW-CV 14.6 % (11.9-14.6); WBC 6.8 K/uL (4.0-11.0)
[2017-03-29 04:10] LABS: ALBUMIN 3.5 gm/dL (3.5-5.0); ANION GAP 10.6 (10.0-19.0); CALCIUM 8.4 mg/dL (8.5-10.5); CREATININE 0.6 mg/dL (0.5-1.1); POTASSIUM 3.6 mMol/L (3.7-5.1); TOTAL BILIRUBIN 0.8 mg/dL (0.0-1.5); TOTAL PROTEIN 7.2 g/dL (6.0-8.4)
--- NOTE | 2017-03-29 04:55 | NUR ---
Significant Event: Patient alert and oriented x3. Anxious. Worried. Uncomfortable with plan of action. RN attempted to educate and reassure throughout shift with little relief. SBP 160s-200s. PRN Labatalol ordered. HR 70s-100s. In AFlutter. All other vital signs stable. On RA. Complained of 9/10 abdominal pain but refused morphine. Requested pain med that wasn't a "central nervous system depressant." PRN dilaudid ordered per Dr. Grover. Morphine D/C'd. Up with stand-by assist. Good uop. Slept on and off. Cooperative with most cares. Follow up: Abdominal ultrasound this morning
--- NOTE | 2017-03-29 17:59 | NUR ---
PATIENT IS AAOX3. SHE FOLLOWS COMMANDS AND MOVES ALL EXTREMITITES. SHE IS STAND BY ASSIST TO THE MAGALY (RN CARRIES THE PUMP). SHE HAS DENIED ANY PAIN TODAY. SHE IS ON ROOM AIR. PATIENT WAS NPO TILL AFTER HER ULTRASOUND OF HER GALLBLADDER. SHE IS NOW CLEAR LIQUID TILL MIDNIGHT AND THEN NPO AGAIN FOR AN ERCP TOMORROW. POSSIBLE REMOVAL OF GALLBLADDER MONDAY. RIGHT HAND PIV WITH NS RUNNING. PATIENT HAS BEEN UP TO VOID, NO BOWEL MOVEMENT (ONLY GAS). BLOOD PRESSURE HAS BEEN RUNNING HIGH TODAY. HEART RATE IS NORMALLY A-FIB, NOW IN A-FLUTTER. SHE HAS BEEN IN AFEBRILE ALL DAY. SHE HAS HAD VERY LITTLE ANIEXTY TODAY COMPARE TO REPORT FROM THIS MORNING. SHE HAS BEEN VERY CALM AND COOPERATIVE. FAMILY IS CURRENTLY IN ROOM NOW.
--- NOTE | 2017-03-30 04:32 | NUR ---
Significant Event: Patient alert and oriented x3. Calm this shift. SBP 130s-150s. HRs 70s-150s with activity. All other vital signs stable. On RA. No complaints of pain. NPO since midnight. Good uop. BMx1 this shift. HRs up to 150s when straining. Stand-by assist. Slept most of this shift. Calm and cooperative with all cares. Follow up: ERCP today. Gallbladder out on Monday?
[2017-03-30 04:44] LABS: ALBUMIN 2.9 gm/dL (3.5-5.0); ALK PHOS 68 IU/L (33-138); ALT 83 IU/L (12-78); ANION GAP 10.4 (10.0-19.0); AST 62 IU/L (10-40); BLOOD UREA NITROGEN 10 mg/dL (6-24); CHLORIDE 105 mMol/L (96-110); CO2 26 mMol/L (22-32); CREATININE 0.4 mg/dL (0.5-1.1); MAGNESIUM 1.7 mg/dL (1.8-2.6); PHOSPHORUS 2.7 mg/dL (2.5-4.9); POTASSIUM 3.4 mMol/L (3.7-5.1); SODIUM 138 mMol/L (135-145)
--- NOTE | 2017-03-30 11:58 | NUR ---
Introduced self and CM role to Tatianna. Tatianna tells me that she lives at [facility] and has been living there for the past 9 months. It is her plan to return there as soon as she is able to. Her son will come and pick her up to take her back to [facility] when she is ready to do so. PCP is with [facility]. Tatianna doesn't manage her own medications, [facility] does them for her. She doesn't have a FWW at this time, but states she does have a script filled out by to use if she needs to get one. Denies any needs or HHC or additional DME upon dismissal. No other questions, needs or concerns. Plan return back to [facility]. She reports she is waiting to have her ERCP done today and then she might have to have her gallbladder out on Monday.
--- NOTE | 2017-03-30 17:00 | NUR ---
Significant Event: pt up to recliner and bathroom standby asst. Pt is to have GB surgery at 0900, heparin to be off 6hr before sx. Heparin at 700u/hr, 1st ptthp at 1810 tonight, no bolus was given. MG 2g given and Kcl 40 iv today. No c/o pain, she refused tylenol. New IV for ampicillin. Follow up:
[2017-03-31 03:52] LABS: BASOPHIL % 0.4 %; EOSINOPHIL # 0.1 K/uL (0.0-0.5); HEMATOCRIT 35.9 % (33.0-46.0); HEMOGLOBIN 11.6 g/dL (10.0-15.0); IMMATURE GRANULOCYTE % 0.2 %; LYMPHOCYTE # 1.3 K/uL (0.8-4.0); MCH 29.4 pg (27.0-34.0); MCHC 32.3 gm/dL (32.0-36.5); MCV 90.9 fl (83.0-98.0); MONOCYTE % 18.5 %; MPV 10.4 fl (9.4-12.4); NEUTROPHIL % 54.9 %; NRBC % 0 /100WBC (0-0.00); PLATELET COUNT 199 K/uL (150-450); RBC 3.95 M/uL (3.50-5.50); RDW-CV 14.7 % (11.9-14.6); WBC 5.5 K/uL (4.0-11.0)
--- NOTE | 2017-03-31 04:10 | NUR ---
Significant event: A/O x 3. Up to bathroom with 1 assist. Permits signed for gallbladder removal at 0900. Heparin drip running at 900 units and was shut off at 0300 (6 hrs prior to sugery) Has NS runnig now at 100ml/hr. Has been NPO since midnight. No c/o pain throughout the night. VSS
[2017-03-31 04:11] LABS: ALBUMIN 2.6 gm/dL (3.5-5.0); TOTAL BILIRUBIN 1.2 mg/dL (0.0-1.5); TOTAL PROTEIN 5.9 g/dL (6.0-8.4)
[2017-03-31 04:13] LABS: ALBUMIN 2.6 gm/dL (3.5-5.0); ANION GAP 12.4 (10.0-19.0); BLOOD UREA NITROGEN 7 mg/dL (6-24); CALCIUM 7.6 mg/dL (8.5-10.5); CHLORIDE 103 mMol/L (96-110); CO2 25 mMol/L (22-32); CREATININE 0.4 mg/dL (0.5-1.1); MAGNESIUM 1.9 mg/dL (1.8-2.6); POTASSIUM 3.4 mMol/L (3.7-5.1); SODIUM 137 mMol/L (135-145)
--- NOTE | 2017-03-31 11:33 | NUR ---
A-NUTRITION F/U PT IN OR THIS MORNING FOR GALLBLADDER REMOVAL WT IS UP FROM ADMIT WT. LABS REVIEWED: K+ 3.4, GREY PERCHER 0.4, ALB 2.6 DIET RX: NPO FOR SURGERY. PO INTAKE PRIOR TO NPO STATUS WAS 25-100% EST NUTR. NEEDS: [id number] KCALS AND 59-83 GM PROTEIN D-AT NUTRITION RISK W/MODERATE MALNUTRITION R/T INADEQUATE ORAL INTAKE AEB NFPE, WT LOSS HEALTH PROGRAM ANALYST, AND PT REPORT. I-1)RESTART WILDBERRY ENSURE CLEAR IF PT IS ON CLEAR LIQUIDS POST-OP. 2)ENSURE ENLIVE BID TO START WHEN DIET ADVANCED M/E-GOAL: PO INTAKE >/=50% BY DISCHARGE 1)F/U DIET RX, PO INTAKE, SUPPLEMENT, GI AND POC IN 3-5 DAYS 2)ASSIST NEEDED
--- NOTE | 2017-03-31 13:05 | NUR ---
Talked with DARRION Russ, she tells me that Tatianna is out of the room right now and down in OR getting her gallbladder removed. She will be here for a little bit yet, but will return back to [facility] when ready to do so. I phoned over to [facility], , talked with Katiana gave her a verbal update on Tatianna. Katiana says that they will accept back when she is ready to dismiss. They can not take her over the weekend, so it would be Monday at the soonest before she could return to them. Called up to PCU and let DARRION Rodriguez, who is following DARRION Russ for the day, know this and asked her to pass it along to other nursing staff in report. CM to continue to follow and assist.
--- NOTE | 2017-03-31 16:18 | NUR ---
Significant Event: Follow up: PATIENT ALERT AND ORIENTED THIS SHIFT. PATIENT HAD GALBLADDER OUT THIS AM. INCISIONS COVERED WITH STERI STRIPS, GAUZE, AND TEGADERM. EBL<50. NO C/O PAIN THIS SHIFT. STATES SHE IS "TENDER" WHERE THE OPERATION WAS. UP WITH 1 ASSIST. INCONTINENT OF URINE X1 THIS SHIFT. HAS HAD ONLY CLEAR LIQUIDS THIS SHIFT BUT CAN ADVANCE TOLERATED. IV FLUIDS RUNNING W/O COMPLICATIONS. CHRONIC A FIB. BM THIS AM WITHIN PATIENTS NORMAL PARAMETERS. COMPLIANT WITH CARES THIS SHIFT.
[2017-04-01 04:06] LABS: HEMATOCRIT 36.2 % (33.0-46.0); HEMOGLOBIN 11.7 g/dL (10.0-15.0); MCH 29.1 pg (27.0-34.0); MCHC 32.3 gm/dL (32.0-36.5); MPV 10.5 fl (9.4-12.4); PLATELET COUNT 227 K/uL (150-450); RBC 4.02 M/uL (3.50-5.50); RDW-CV 14.3 % (11.9-14.6); WBC 5.4 K/uL (4.0-11.0)
[2017-04-01 04:23] LABS: ALBUMIN 2.6 gm/dL (3.5-5.0); ALK PHOS 62 IU/L (33-138); ALT 52 IU/L (12-78); ANION GAP 8.1 (10.0-19.0); AST 35 IU/L (10-40); BLOOD UREA NITROGEN 8 mg/dL (6-24); CALCIUM 8.2 mg/dL (8.5-10.5); CHLORIDE 106 mMol/L (96-110); CO2 27 mMol/L (22-32); CREATININE 0.5 mg/dL (0.5-1.1); POTASSIUM 3.1 mMol/L (3.7-5.1); SODIUM 138 mMol/L (135-145); TOTAL PROTEIN 6.3 g/dL (6.0-8.4)
[2017-04-01 04:26] LABS: TOTAL BILIRUBIN 0.9 mg/dL (0.0-1.5)
--- NOTE | 2017-04-01 04:37 | NUR ---
Patient A/Ox3. VSS on RA. Up standby assist. Lungs clear. Bowel sounds hypoactive, surgical site CDI. No pain this am. Tylenol x1. IV to RT hand and wrist saline locked. Advance diet as tolerated. Possible DC today with son.
[2017-04-01 04:39] LABS: ABSOLUTE NEUTROPHIL CT (ANC) 4.4 K/uL (1.8-7.8); BANDED NEUTROPHIL # 1.3 K/uL (0.0-0.1); BANDED NEUTROPHILS % 24 %; LYMPHOCYTE # 0.5 K/uL (0.8-4.0); LYMPHOCYTE % 10 %; MONOCYTE # 0.5 K/uL (0.0-1.0); SEGMENTED NEUTROPHIL # 3.1 K/uL (1.8-7.8); SEGMENTED NEUTROPHIL % 57 %
--- NOTE | 2017-04-01 16:17 | NUR ---
Significant Event: Follow up: INCREASINGLY AGITATED THIS SHIFT. WANTS TO LEAVE, AND STATES THAT SHE FEELS LIKE SHE ISN'T GETTING ANY ANSWERS. HRs IN THE 130s-140s FOR >20 MINUTES THIS AM. MD ORDERED METOPROLOL IV PUSH. HRs CAME DOWN TO HIGH 80s AND LOW 90s UNTIL THIS AFTERNOON WHERE THEY ARE BACK IN THE 100s. SBPs IN THE 140s. O2 SATS IN MID 90s ON ROOM AIR. STATED THAT SHE IS ANXIOUS BUT REFUSED MEDICATION FOR IT. DR MAY CAME BACK TO REASSURE HER OF THE MEDICAL PLAN. POTASSIUM PO AND IV THIS AFTERNOON FOR LOW K+ LAB. MAGNESIUM IV ALSO GIVEN. AT 1630 HRs BACK UP INTO THE 150s WITH THE MD IN THE ROOM. AFEBRILE THIS SHIFT. LUNGS CLEAR AND BOWEL SOUNDS PRESENT. TOLERATING DIET WELL. STARTED EATING SOME SOFT FOODS. IV IN RIGHT HAND/WRIST. LEFT ARM LIMB ALERT DUE TO MASTECTOMY. ALERT AND ORIENTED BUT VERY ANXIOUS. COMPLIANT WITH CARES.
[2017-04-02 03:50] LABS: ALBUMIN 2.7 gm/dL (3.5-5.0); ANION GAP 9.1 (10.0-19.0); CALCIUM 8.2 mg/dL (8.5-10.5); CHLORIDE 107 mMol/L (96-110); CO2 29 mMol/L (22-32); CREATININE 0.5 mg/dL (0.5-1.1); MAGNESIUM 2.1 mg/dL (1.8-2.6); POTASSIUM 4.1 mMol/L (3.7-5.1); SODIUM 141 mMol/L (135-145)
[2017-04-02 03:51] LABS: BLOOD UREA NITROGEN 22 mg/dL (6-24); PHOSPHORUS 1.6 mg/dL (2.5-4.9)
--- NOTE | 2017-04-02 05:01 | NUR ---
Patient A/Ox3. VSS. 1 assist. Cardizem gtt 5, HR 90-100's. Lungs clear. Bowel sounds hypoactive-present, 1bm this shift. Abdomen slightly distented. Incisions are CDI. IV to Rt hand and wrist. No pain or nausea.
--- NOTE | 2017-04-02 15:21 | NUR ---
Significant Event: A/O. Afib rates remain 80s-130s but does not sustain high rates - cardizem at 10mg/hr entire shift. BPs stable. Afebrile. Tolerating meals, no nausea. BMx2 patient reqests imodium - dose x1. Patient up to chair x1 and in gonzalez x1 - patient states she feels too weak to ambulate/chair and refuses. Denies pain. Follow up:
--- NOTE | 2017-04-03 04:06 | NUR ---
Patient A/Ox3. VSS on RA. One assist w/gaitbelt. Lungs clear. Bowel sounds hypoactive, does complain of bloating. Abd incisions CDI. IVs x2 to Rt hand saline locked. No complaints of pain. Chronic AFIB HR 90-low 100's. Possible DC back to Assisted Living today.
--- NOTE | 2017-04-03 12:06 | NUR ---
Social visit with Tatianna today. She tells me she still plans on returning back to [facility] when she is able to. Tatianna says it will probably be either tomorrow or Monday depending on when they get her heart rates to be stable. Tatianna says that her son will come and pick her up or the [facility] van might have to come and get her. I let her know that I would update [facility] to this and also see if the van might be able to pick her up tomorrow if her son can't. She was fine with this. I phoned over to [facility], talked with Katiana and updated her to the above. Katiana says that the van is coming to [place] tomorrow in the morning, but she isn't for sure if they will have room for her on it or if they could make that work. Katiana said to just call in the morning and they would see what they could do to make it work it her son couldn't come pick her up. Let her know that I would do this. CM to continue to follow and assist. Plan return back to [facility].
--- NOTE | 2017-04-03 19:12 | NUR ---
Significant event: A&Ox3, forgetful at times. Afib, rates 100-140's late morning, given additional PO cardizem at 1300, given IV cardizem bolus at 1500 HR were 80-100's. Cardizem will now be switched to home dose tonight, and we are to call MD if HR > 120's. Bowels hypoactive, steri-strips to lap cinthya sites. Up in gonzalez x 1, MD did not want patient walking with high HR this afternoon. RA. Denies pain. IV potassium phosphate given. Follow Up: Monitor HR
[2017-04-04 03:31] LABS: ALBUMIN 2.4 gm/dL (3.5-5.0); BLOOD UREA NITROGEN 18 mg/dL (6-24); CHLORIDE 102 mMol/L (96-110); CO2 29 mMol/L (22-32); CREATININE 0.3 mg/dL (0.5-1.1); MAGNESIUM 2.1 mg/dL (1.8-2.6); PHOSPHORUS 3.7 mg/dL (2.5-4.9); SODIUM 138 mMol/L (135-145)
--- NOTE | 2017-04-04 04:54 | NUR ---
Significant Event: PT A/O X3. SBP 140-150 HR 100-110. SATS 92% ON RA. GUOP 1100ML. DENIES PAIN. PT STATED SHE WAS FEELING ANXIOUS AND REQUESTED A XANAX AT HS. ONCE PT'S HR IS UNDER CONTROL SHE CAN GO BACK TO [facility] IN [facility]. Follow up: FOLLOW CARE PLAN.
[2017-04-04 10:50] LABS: CPK 49 IU/L (21-215)
--- NOTE | 2017-04-04 11:57 | NUR ---
PT MOVED TO NO RISK W/ INTAKE 50-100%, WT UP SINCE ADMIT. WILL CONT ENSURE BID W/ MEALS TO MAINTAIN LEAN MASS. WILL F/U IN 7-10 DAYS.
--- NOTE | 2017-04-04 12:34 | NUR ---
Talked with DARRION Lazar and also reviewed Jjdas' chart, it appears that her heart rates are still high so they are not planning on sending her back to the [facility] today. I phoned over to [facility], , talked with Mirlande, gave her the update on Tatianna and let her know we would try for tomorrow. Mirlande says that the van won't be able to come and get her tomorrow so family will have to bring her back when she is ready to come. Let her know that this is fine. CM to continue to follow and assist.
--- NOTE | 2017-04-04 19:10 | NUR ---
PATIENT UP TO BR AND CHAIR W/ 1 ASSIST AND WALKER. HR DECREASED AFTER METOPROLOL STARTED TO 80-90'S AT REST, 110 WITH ACTIVITY. PLAN FOR HEART CATH IN AM.
--- NOTE | 2017-04-05 04:46 | NUR ---
Significant Event: PT A/O X3. SBP 120-150 HR 80-90 SATS 94% ON RA. PT DENIES PAIN. PT TO HAVE HEART CATH THIS AM, RIGHT RADIAL APPROACH. NS RUNNIG AT 100 ML IN RIGHT HAND. PT HAS BEEN NPO SINCE MIDNIGHT. GOOD UOP 1200. Follow up: FOLLOW CARE PLAN
[2017-04-05 07:14] LABS: HEMATOCRIT 36.6 % (33.0-46.0); HEMOGLOBIN 11.5 g/dL (10.0-15.0); MCH 28.8 pg (27.0-34.0); MCHC 31.4 gm/dL (32.0-36.5); MCV 91.5 fl (83.0-98.0); MPV 10.4 fl (9.4-12.4); RDW-CV 15.3 % (11.9-14.6); WBC 3.5 K/uL (4.0-11.0)
[2017-04-05 07:15] LABS: PLATELET COUNT 308 K/uL (150-450)
[2017-04-05 07:20] LABS: INR - (THERAPEUTIC) 1.05 (0.92-1.07); PTT 25 SECONDS (25-32)
[2017-04-05 07:30] LABS: ALBUMIN 2.7 gm/dL (3.5-5.0); ANION GAP 10.1 (10.0-19.0); CALCIUM 8.3 mg/dL (8.5-10.5); POTASSIUM 4.1 mMol/L (3.7-5.1); TOTAL PROTEIN 6.3 g/dL (6.0-8.4)
[2017-04-05 07:32] LABS: CREATININE 0.6 mg/dL (0.5-1.1); TOTAL BILIRUBIN 0.4 mg/dL (0.0-1.5)
[2017-04-05 07:47] LABS: BANDED NEUTROPHIL # 0.2 K/uL (0.0-0.1); BANDED NEUTROPHILS % 5 %; LYMPHOCYTE # 1.9 K/uL (0.8-4.0); LYMPHOCYTE % 55 %; MONOCYTE # 0.6 K/uL (0.0-1.0); SEGMENTED NEUTROPHIL # 0.8 K/uL (1.8-7.8); SEGMENTED NEUTROPHIL % 23 %
--- NOTE | 2017-04-05 11:57 | NUR ---
1040 Came by to see Tatianna and review her chart. I was unable to do either one of those things as they were taking her down for her heart cath procedure. Will come back and see at a later time. I phoned to [facility], talked with Petrona, gave her an update on Tatianna and let them know that she most likely won't be coming back to them today, but we would see how she was doing tomorrow and possibly get her back to them then. Petrona was fine with this. Plan return back to [facility]. to continue to follow and assist.
--- NOTE | 2017-04-05 15:39 | NUR ---
Significant event: A&Ox3, forgetful. Had heart cath today, R) radial approach, bruising noted, soft, tender. SBP after heart cath 180's, at 1335 had bigeminal PVC's and triplet PVC's as well as 13 seconds of V-tach. Dr. Galeana notified, d/c'd cardizem and digoxin, increased Lopressor. To have Life vest. Tylenol for soreness to R) radial site. IV SL'd. Follow Up: Continue current POC
--- NOTE | 2017-04-06 06:17 | NUR ---
Significant Event: Patient is alert/oriented x3, has moments of forgetfulness. Vital signs are stable. Continues in atrial fibrillation with controlled rates. No other ectopy last night. Denies any pain. Follow up: Possible dismissal back to assisted living facility today or tomorrow.
--- NOTE | 2017-04-06 16:19 | NUR ---
Significant event: A&Ox3. VSS. RA. Denies pain. R) wrist cath site changed to band-aid, remains soft, CSM WNL, bruising. Norvasc initiated, SBP has been 120-130's since given. HR 80's, a-fib. Lung sounds clear. Life vest to fit patient tonight. Follow Up: Back to Assisted living tomorrow
--- NOTE | 2017-04-07 05:05 | NUR ---
A&Ox3. VSS on RA. Denies pain. Slightly anxious throughout shift. R radial and brachial sites remain WNL and soft. A.fib. Life vest on and pt has been educated on it. Up SBA to BR. D/C to [facility] today.
[2017-04-07] MEDS ORDERED: NORVASC2.5 MG PO (15:32)
[2017-04-07] MEDS ORDERED: LOPRESSOR50 MG PO (15:36)
[2017-04-07] MEDS ORDERED: CRESTOR10 MG PO (15:36)
--- NOTE | 2017-04-07 16:29 | NUR ---
I spoke with Sanam MAIER this am at 1100 regarding orders and have not got them. I told her she is returning to [facility] in [place] and according to my note son will take. I asked about life vest and she did get it yesterday. I then called RN around 1330 asking about orders and maybe calling md. I got a vm around 1515 stating we have orders and pt can return. I went up stairs and orders were faxed. I spoke with Mirlande and she is good to return. I then asked nursing about transport and she did not know. I then spoke with pt and she states her son works in till 8 pm. I then called Mirlande back and as long as they have orders she can come back anytime because her son brings her back late on the weekends. I then went back and told this to the pt because she was leaving her son an extensive vm. I did tell her I left him a couple and she stated she did not know she would be going back today. I stated the plan was yesterday but waiting on the lifevest and she stated her son could take her yesterday because he was off and could have before noon. I stated she and son did not relay any of this to the staff. I spoke with Dr Prabhakar and she changed some orders so Julianne will fax a new copy. WIll continue to follow.
--- NOTE | 2017-04-07 17:31 | NUR ---
I spoke with Mirlande several times and she has been on the phone with daughter in [place] and said to try [employer] [facility] she just qualified for Medicaid. I also spoke with Jagruti as well there and appoligized about the situation and that we thought she would go yesterday and just waiting on the lifevest and then I told DR Prabhakar she got it last nite and she stated she did not know and then didn't round till a little before 4pm for orders. We did refax the new orders and I tried [employer] but but the service cordinator needs to update the eligibility. I then spoke with Jagruti again and explained this and she stated the son will be here at 9pm to get her and to make sure she eats. WIll assist as needed.
--- NOTE | 2017-04-07 19:13 | NUR ---
Significant Event:Patient is being discharged to night when son gets off work. Report has been called to Mirlande at the [facility]isted [facility] at [place] at 1800. Lena ent is excited to be going back. Has LIfe vest on. Ambulated in the hallway with PT. Follow up:Home tonight to [place]
[2017-04-07] MEDS ORDERED: PEPCID20 MG PO (19:25)
--- NOTE | 2017-04-07 21:46 | NUR ---
Pt discharged to [facility] with son. Sent with all belonings. Life vest on patient. Instructions told to son as well as discharge packet given to patient/son. IV discontinued prior to discharge. Pt assisted to Son't van via wheel chair. Climbed into van unassisted with no complications. All belongins in son's van.
== END 2017-04-07 21:15 | DRG 418 ==
LOC: GMED 17:55 → GPCU 20:22
PROVIDERS: Family Medicine; Internal Medicine; Internal Medicine Cardiovascular Disease; Physician Assistant; Surgery; ADMIT Internal Medicine
PROC: 0FT44ZZ Resection of Gallbladder, Percutaneous Endoscopic Approach (ICD-10-PCS; 2017-03-31)
PROC: BF13YZZ Fluoroscopy of Gallbladder and Bile Ducts using Other Contrast (ICD-10-PCS; 2017-03-31)
PROC: 4A023N8 Measurement of Cardiac Sampling and Pressure, Bilateral, Percutaneous Approach (ICD-10-PCS; principal; 2017-04-05)
PROC: B211YZZ Fluoroscopy of Multiple Coronary Arteries using Other Contrast (ICD-10-PCS; 2017-04-05)
PROC: B215YZZ Fluoroscopy of Left Heart using Other Contrast (ICD-10-PCS; 2017-04-05)
DX: K85.10 Biliary acute pancreatitis without necrosis or infection (principal); E44.0 Moderate protein-calorie malnutrition; I47.2 Ventricular tachycardia; I48.0 Paroxysmal atrial fibrillation; K80.12 Calculus of gallbladder with acute and chronic cholecystitis without obstruction; I50.30 Unspecified diastolic (congestive) heart failure; F03.90 Unspecified dementia, unspecified severity, without behavioral disturbance, psychotic disturbance, mood disturbance, and anxiety; I27.2 Other secondary pulmonary hypertension; I10 Essential (primary) hypertension; Z68.1 Body mass index [BMI] 19.9 or less, adult; I48.2 Chronic atrial fibrillation; E03.9 Hypothyroidism, unspecified; D72.819 Decreased white blood cell count, unspecified; F41.9 Anxiety disorder, unspecified; J30.9 Allergic rhinitis, unspecified; L93.0 Discoid lupus erythematosus; Z79.01 Long term (current) use of anticoagulants; Z86.73 Personal history of transient ischemic attack (TIA), and cerebral infarction without residual deficits; Z85.3 Personal history of malignant neoplasm of breast; E87.6 Hypokalemia; Z68.21 Body mass index [BMI] 21.0-21.9, adult
CPT/HCPCS: A9270; C1894; J0295; J0360; J1100; J1170; J1335; J1644; J2250; J2405; J3010; J3475; J3480; J7030; J7040; J7050; Q9967

== ENCOUNTER → 2017-04-21 | Outpatient (CLI) | payer MEDICARE, BC, MEDICAID ==
[2017-04-21 17:09] LABS: ANION GAP 9.7 (10.0-19.0); CALCIUM 9.1 mg/dL (8.5-10.5); CREATININE 0.6 mg/dL (0.5-1.1); MAGNESIUM 2.5 mg/dL (1.8-2.6); POTASSIUM 3.7 mMol/L (3.7-5.1)
== END ==
LOC: LNHI 16:47
PROVIDERS: Internal Medicine Cardiovascular Disease
DX: I25.10 Atherosclerotic heart disease of native coronary artery without angina pectoris (principal); I12.9 Hypertensive chronic kidney disease with stage 1 through stage 4 chronic kidney disease, or unspecified chronic kidney disease; I48.2 Chronic atrial fibrillation; I50.32 Chronic diastolic (congestive) heart failure; I47.2 Ventricular tachycardia